=== PATIENT | female | born 1950 | race Caucasian/White ===

== ENCOUNTER → 2016-11-09 | Outpatient (CLI) | payer MEDICARE, BC ==
[2016-11-09 11:57] LABS: ALT 47 U/L (9-52); AST 35 U/L (14-36); Alkaline Phosphatase 76 U/L (38-126); Anion Gap 10 mmol/L; Blood Urea Nitrogen 17 mg/dL (7-17); Calcium 9.5 mg/dL (8.4-10.2); Carbon Dioxide 24 mmol/L (22-30); Chloride 108 mmol/L (98-107); Glucose 105 mg/dL (74-99); Non-African American GFR(MDRD) >60 (>60 ml/min/1.73 sqM); Potassium 4.1 mmol/L (3.5-5.1); Sodium 142 mmol/L (137-145); Total Bilirubin 0.7 mg/dL (0.2-1.3); Total Protein 6.3 g/dL (6.3-8.2)
== END | disposition home or self-care (01) ==
LOC: LABWHC1 07:31
PROVIDERS: ATTEND Internal Medicine Endocrinology, Diabetes & Metabolism
DX: E03.9 Hypothyroidism, unspecified (principal); M81.0 Age-related osteoporosis without current pathological fracture
CPT/HCPCS: 36415; 80053; 82306; 83970; 84443

== ENCOUNTER → 2017-11-08 | Outpatient (CLI) | payer MEDICARE, BC ==
[2017-11-08 09:43] LABS: Albumin 4.3 g/dL (3.5-5.0); Calcium 9.4 mg/dL (8.4-10.2); Potassium 4.8 mmol/L (3.5-5.1); Total Bilirubin 0.7 mg/dL (0.2-1.3); Total Protein 6.6 g/dL (6.3-8.2)
== END | disposition home or self-care (01) ==
LOC: LABWHC1 08:34
PROVIDERS: ATTEND Internal Medicine Endocrinology, Diabetes & Metabolism
DX: E55.9 Vitamin D deficiency, unspecified (principal); E21.3 Hyperparathyroidism, unspecified; E03.8 Other specified hypothyroidism
CPT/HCPCS: 36415; 80053; 82306; 84443

== ENCOUNTER → 2017-11-17 | Outpatient (CLI) | payer MEDICARE, BC ==
--- NOTE | 2017-11-17 16:16 | BD ---
EXAMINATION TYPE: Axial Bone Density DATE OF EXAM: 11/17/2017 COMPARISON: NONE CLINICAL HISTORY: Height: 62 Weight: 170.7 FRAX RISK QUESTIONS: Alcohol (3 or more units per day): no Family History (Parent hip fracture): yes Glucocorticoids (More than 3mos): no (Ex: prednisone, prednisolone, methylprednisolone, dexamethasone, and hydrocortisone). History of Fracture in Adulthood: no Secondary Osteoporosis: 1. Type 1 Diabetes: no 2. Hyperthyroidism: no 3. Menopause before 45: no 4. Malnutrition: no 5. Chronic liver disease: no Rheumatoid Arthritis: no Current Tobacco Use: no RISK FACTORS HISTORY OF: Family History of Osteoporosis: yes Active: yes Diet low in dairy products/other sources of calcium: no Postmenopausal woman: age 46 Lost more than 2 inches in height since high school: no MEDICATIONS: vit d, baby aspirin Thyroid Medications: synthroid How Lon years Additional History: EXAM MEASUREMENTS: Bone mineral densitometry was performed using the [employer] System. Bone mineral density as measured about the Lumbar spine is: ----- L1-L4(G/cm2): 1.108 T Score Values are as follows: ----- L2: -0.9 ----- L3: -0.1 ----- L4: -0.3 ----- L1-L4: -0.6 Bone mineral density has: increased 1.6 % since study of: 09.19.2015 Bone mineral density about the R hip (g/cm2): 0.843 Bone mineral density about the L hip (g/cm2): 0.845 T Score values are as follows: -----R Neck: -1.4 -----L Neck: -1.4 -----R Total: -0.8 -----L Total: -0.7 Bone mineral density has: decreased -1.8 % since study of: 09.19.2015 IMPRESSION: Osteopenia (T Score between -2.5 and -1). There is slightly increased risk of fracture and the patient may be considered for treatment. Re-Screen 2-5 years. NOTE: T-SCORE=SD OF THE YOUNG ADULT MEAN.
== END | disposition home or self-care (01) ==
LOC: RADBDWWP 10:44
PROVIDERS: ATTEND Internal Medicine Endocrinology, Diabetes & Metabolism
DX: M85.80 Other specified disorders of bone density and structure, unspecified site (principal)
CPT/HCPCS: 77080

== ENCOUNTER → 2017-12-10 | Outpatient (CLI) | payer MEDICARE, BC ==
--- NOTE | 2017-12-10 08:26 | CT ---
EXAMINATION TYPE: CT sinus wo con DATE OF EXAM: 12/10/2017 COMPARISON: NONE HISTORY: Chronic sinusitis per order. Recurrent sinus infection for years per patient CT DLP: 639 mGycm. Automated Exposure Control for Dose Reduction was Utilized. TECHNIQUE: CT scan of the sinuses is performed without contrast, axial images are obtained, coronal r eformatted images are also reviewed. FINDINGS: There is eccentric 10 mm mucus retention cyst or polyp in the inferior lateral left maxilla ry sinus with minimal adjacent mucosal thickening. Remainder of the paranasal sinuses are clear. No suspicious opacification or air-fluid levels are seen The ostiomeatal complex is patent bilaterally o n the coronal images seen best coronal image 26. Mild left-sided antral mucosal thickening is noted o n this image. Visualized portion of mastoid air cells show no abnormal opacification. The globes are intact bilate rally. Visualized portion of brain parenchyma shows mild age-related cerebral atrophy and chronic sm all vessel ischemic change IMPRESSION: Mild chronic left-sided paranasal sinus disease. No acute sinusitis.
== END | disposition home or self-care (01) ==
LOC: RADXRMAIN 07:34
PROVIDERS: ATTEND Otolaryngology
DX: J34.89 Other specified disorders of nose and nasal sinuses (principal); J32.9 Chronic sinusitis, unspecified
CPT/HCPCS: 70486

== ENCOUNTER → 2018-11-07 | Outpatient (CLI) | payer MEDICARE, BC ==
[2018-11-07 12:25] LABS: African American GFR (CKD) 75.1 (60.0-200.0); Albumin 4.4 g/dL (3.80-4.90); Albumin/Globulin Ratio 2.32 (1.60-3.17); BUN/Creat Ratio 26.67 Ratio (12.00-20.00); Calcium 9.5 mg/dL (8.7-10.3); Globulin 1.9 g/dL (1.6-3.3); Potassium 4.3 mmol/L (3.5-5.5); Total Bilirubin 0.7 mg/dL (0.2-1.2); Total Protein 6.3 g/dL (6.2-8.2)
[2018-11-07 12:33] LABS: Vitamin D 25 Hydroxy 32.8 ng/mL (30.0-100.0)
[2018-11-07 12:58] LABS: Parathyroid Hormone Intact 74.6 pg/mL (14.0-72.0)
== END | disposition home or self-care (01) ==
LOC: LABWHC1 06:40
PROVIDERS: ATTEND Internal Medicine Endocrinology, Diabetes & Metabolism
DX: E03.8 Other specified hypothyroidism (principal); E55.9 Vitamin D deficiency, unspecified; E21.3 Hyperparathyroidism, unspecified
CPT/HCPCS: 36415; 80053; 82306; 83970; 84443

== ENCOUNTER → 2020-01-24 | Outpatient (CLI) | payer MEDICARE, BC ==
--- NOTE | 2020-01-25 09:26 | CT ---
EXAMINATION TYPE: CT abdomen pelvis w con DATE OF EXAM: 01/24/2020 HISTORY: Abdomen pain, hx diverticulitis. CT DLP: 869.52mGycm Automated Exposure Control for Dose Reduction was Utilized. CONTRAST: CT scan of the abdomen and pelvis is performed with IV Contrast, patient injected with 100 mL of Isov ue 300. COMPARISON: CT abdomen and pelvis January 03, 2018 FINDINGS: LUNG BASES: No significant abnormality is appreciated. LIVER/GB: Liver remains diffusely low dense consistent with diffuse fatty infiltration. PANCREAS: No significant abnormality is seen. SPLEEN: No significant abnormality is seen. ADRENALS: No significant abnormality is seen. KIDNEYS: No significant abnormality is seen. BOWEL: Oral contrast reaches level of the mid transverse colon. There is no suspicious small or large bowel dilatation. Normal-appearing appendix is seen from base of cecum. Suboptimal evaluation of dis jessica bowel. Few scattered diverticula in the left colon. More prominent diverticulosis in the sigmoid colon of the pelvis where there is moderate to severe wall thickening and mild ill-defined fat strand ing on current study. UTERUS/ADNEXA: Anteverted uterus. Prominence of the central hypodense endometrium up to 11 mm in [facility] axial image 69. Nonemergent follow-up advised. Symmetric normal size ovaries noted near axial i mage 57. LYMPH NODES: No greater than 1cm abdominal or pelvic lymph nodes are appreciated. OSSEOUS STRUCTURES: Mild to moderate disc space narrowing left L4-L5 level. OTHER: No significant additional abnormality is seen. IMPRESSION: 1. Mild uncomplicated acute diverticulitis mid sigmoid colon level in the left mid pelvis. Follow-up colonoscopy after treatment is advised to underlying moderate to severe wall thickening if has not be en performed in last 3 years to rule out underlying mass. 2. Some prominence of the central hypodense endometrial stripe in postmenopausal female, advise pelvi c ultrasound follow-up to better evaluate and characterize.
== END | disposition home or self-care (01) ==
LOC: RADCTMAIN 14:36
PROVIDERS: ATTEND Surgery
DX: K57.92 Diverticulitis of intestine, part unspecified, without perforation or abscess without bleeding (principal); N95.9 Unspecified menopausal and perimenopausal disorder
CPT/HCPCS: 82565; 84520; 74177; 36415; Q9967

== ENCOUNTER → 2020-02-20 | Outpatient (CLI) | payer MEDICARE, BC ==
--- NOTE | 2020-02-21 09:03 | MM ---
Reason for exam: screening (asymptomatic). Last mammogram was performed 6 years and 2 months ago. History: Patient is postmenopausal. Family history of breast cancer in aunt. Core biopsy of the right breast. Physical Findings: A clinical breast exam by your physician is recommended on an annual basis and results should be correlated with mammographic findings. MG 3D Screening Mammo W/Cad Bilateral CC and MLO view(s) were taken. Prior study comparison: December 05, 2013, bilateral MG screening mammo w CAD. The breast tissue is heterogeneously dense. This may lower the sensitivity of mammography. Finding #1: There is a 9 mm obscured oval mass located 4-5 cm from the nipple in the anterior, middle, central position of the left breast CC 25/77 and MLO 36/79. Finding #2: There are typically benign vascular, round calcifications in both breasts. ASSESSMENT: Incomplete: need additional imaging evaluation, BI-RAD 0 RECOMMENDATION: Ultrasound of the left breast. [facility] will attempt to contact patient to return for ultrasound.
== END | disposition home or self-care (01) ==
LOC: RADMAMWWP 07:02
PROVIDERS: ATTEND Internal Medicine Geriatric Medicine
DX: Z12.31 Encounter for screening mammogram for malignant neoplasm of breast (principal)
CPT/HCPCS: 77063; 77067

== ENCOUNTER → 2020-02-28 | Outpatient (CLI) | payer MEDICARE, BC ==
--- NOTE | 2020-02-28 10:01 | USB ---
Reason for exam: additional evaluation requested from abnormal screening. History: Patient is postmenopausal. Family history of breast cancer in aunt. Core biopsy of the right breast. Physical Findings: Nurse did not find any significant physical abnormalities on exam. US Breast Workup LT Technologist: Nikole Dela Cruz Left complete breast ultrasound includes all four quadrants, the retroareolar region and axilla. Finding demonstrates a 0.7 x 0.6 x 0.5cm circular, cystic lesion at 6 o'clock, a 0.4 x 0.6 x 0.4cm lesion at the nipple and a 0.9 x 0.5 x 0.4cm oval, cystic lesion at 9 o'clock. These results were verbally communicated with the patient and result sheet given to the patient on 02/28/20. ASSESSMENT: Probably benign, BI-RAD 3 RECOMMENDATION: Follow-up diagnostic mammogram and ultrasound of the left breast in 6 months.
== END | disposition home or self-care (01) ==
LOC: RADUSWWP 08:37
PROVIDERS: ATTEND Internal Medicine Geriatric Medicine
DX: R92.8 Other abnormal and inconclusive findings on diagnostic imaging of breast (principal)

== ENCOUNTER → 2020-03-26 | Day surgery (SDC) | payer MEDICARE, BC ==
[2020-03-19 10:10] VITALS: BMI 32.1
[~2020-03-26] MED LIST: LACTATED RINGERS 1,000 ML IV ONE; LACTATED RINGERS 1,000 ML IV SCH; LIDOCAINE 1% (10MG/ML) FOR IV START INTRADERMA PRN; PROPOFOL 10 MG/ML 20 ML VIAL IV ONE
[2020-03-26 09:24] VITALS: TEMP 97.8
--- NOTE | 2020-03-26 10:13 | P.GSHP ---
History of Present Illness H&P Date: 03/26/20 Chief Complaint: Change in bowel habits 69-year-old female seen in the office in December. Patient has had complaints of change in bowel habits. Has had episodes of diverticulitis as well. Usually about 2 episodes a year. Last episode January 24. CAT scan showed mild di verticulitis. No rectal bleeding. Past Medical History Past Medical History: Thyroid Disorder Additional Past Medical History / Comment(s): OSTEOPOROSIS, diverticulitis. History of Any Multi-Drug Resistant Organisms: None Reported Past Surgical History: No Surgical Hx Reported, Orthopedic Surgery Additional Past Surgical History / Comment(s): YMUIKO FEET HEEL SPURS REMOVED, COLONOSCOPY, yumiko Cataracts Past Anesthesia/Blood Transfusion Reactions: No Reported Reaction Smoking Status: Former smoker Medications and Allergies Home Medications Medication Instructions Recorded Confirmed Type Levothyroxine Sodium [Synthroid] 88 mcg PO MOTUWETHFRSA 10/18/13 03/19/20 History Levothyroxine Sodium [Synthroid] 44 mcg PO HERMAN 01/03/18 03/19/20 History Ergocalciferol (Vitamin D2) 1,250 mcg PO Q14D 03/19/20 03/19/20 History [Vitamin D2] Fenofibrate [Lofibra] 54 mg PO DAILY 03/19/20 03/19/20 History Allergies Allergy/AdvReac Type Severity Reaction Status Date / Time ciprofloxacin [From Cipro] Allergy Unknown Verified 03/19/20 10:04 adhesive AdvReac Unknown Verified 03/19/20 10:04 Surgical - Exam Vital Signs Temp Pulse Resp BP Pulse Ox 97.8 F 68 18 168/84 98 03/26/20 09:23 03/26/20 09:23 03/26/20 09:23 03/26/20 09:23 03/26/20 09:23 Physical exam: General: Well-developed, well-nourished HEENT: Normocephalic, sclerae nonicteric Abdomen: Nontender, nondistended Extremities: No edema Neuro: Alert and oriented Assessment and Plan (1) Change in bowel habits Narrative/Plan: Will proceed with colonoscopy. Current Visit: Yes Status: Acute Code(s): R19.4 - CHANGE IN BOWEL HABIT SNOMED Code(s): 074587415
--- NOTE | 2020-03-26 10:23 | P.PCN ---
Date of Procedure: 03/26/20 Procedure(s) Performed: PREOPERATIVE DIAGNOSIS: Colon cancer screening POSTOPERATIVE DIAGNOSIS: Tortuous sigmoid colon unable to advance through that region PROCEDURE: Colonoscopy attempted ANESTHESIA: MAC SURGEON: Roberto Cary M.D. SPECIMENS: None ENDOSCOPIC PROCEDURE: The patient was placed on the endoscopy table in the left decubitus position. The Olympus colonoscope was inserted into the anus and passed under direct visualization to the mid sigmoid colon. The patient had significant tortuosity. I could not visualize any definite diverticulosis or stricture formation at the scope was unable to advance beyond the mid sigmoid despite multiple attempts. The scope was withdrawn. The visualized sigmoid and rectum appeared normal. Digital rectal examination was normal. The patient was taken to the recovery room in stable condition per anesthesia guidelines. RECOMMENDATIONS: Will discuss options barium enema with patient. Patient may benefit from elective sigmoid resection at some point given her recurrent episodes of diverticulitis and sigmoid tortuosity.
[2020-03-26 10:27] VITALS: RESP 16
[2020-03-26 12:54] VITALS: BP 132/75; PULSE 62
--- NOTE | 2020-03-26 14:29 | FL ---
EXAMINATION TYPE: FL barium enema DATE OF EXAM: 03/26/2020 COMPARISON: CT abdomen and pelvis January 24, 2020 HISTORY: History of diverticulosis and diverticulitis and incomplete colonoscopy earlier today TECHNIQUE: A double contrast barium enema study is performed. Total 2 minutes 5 seconds fluoroscopic time. 24 images saved to PACS. FINDINGS: [employer] view of the abdomen shows overall non-obstructive bowel gas pattern. Enema study is performed. There is successful filling to the cecum. There are scattered diverticula t hroughout the transverse and left colon with more prominent diverticulosis in the sigmoid colon. Ther e is mild wall irregularities and underdistention presumed stricturing of the sigmoid colon present p roduct of prior chronic diverticulitis. No concentric narrowing mass or neoplasm identified. No large polyp. Appendix was filled and appeared normal. The terminal ileum was refluxed and appears within normal limits on overhead images obtained. IMPRESSION: Scattered colonic diverticula with more prominent diverticulosis and findings from chron ic inflammation or diverticulitis in the sigmoid colon. No obstructing mass or neoplasm identified. S uccessful filling to the cecum noted.
== END ==
LOC: ORWHC2ENDO 09:07
PROVIDERS: ATTEND Surgery
DX: K57.31 Diverticulosis of large intestine without perforation or abscess with bleeding (principal); R93.3 Abnormal findings on diagnostic imaging of other parts of digestive tract; Q43.8 Other specified congenital malformations of intestine; E07.9 Disorder of thyroid, unspecified; M81.0 Age-related osteoporosis without current pathological fracture; Z98.890 Other specified postprocedural states; Z87.39 Personal history of other diseases of the musculoskeletal system and connective tissue; Z98.41 Cataract extraction status, right eye; Z98.42 Cataract extraction status, left eye; Z87.891 Personal history of nicotine dependence; Z79.890 Hormone replacement therapy; Z79.899 Other long term (current) drug therapy; Z88.1 Allergy status to other antibiotic agents; Z91.09 Other allergy status, other than to drugs and biological substances; Z97.2 Presence of dental prosthetic device (complete) (partial)
CPT/HCPCS: 74270; 45330; J2704

== ENCOUNTER → 2020-09-10 | Outpatient (CLI) | payer MEDICARE, BC ==
--- NOTE | 2020-09-10 11:42 | MM ---
Reason for exam: follow-up at short interval from prior study. Last mammogram was performed 7 months ago. History: Patient is postmenopausal. Family history of breast cancer in maternal aunt at age 80. Core biopsy of the right breast. Physical Findings: Nurse did not find any significant physical abnormalities on exam. MG 3D Diag Mammo W/Cad LT CC and MLO view(s) were taken of the left breast. Prior study comparison: February 20, 2020, bilateral MG 3d screening mammo w/cad. December 05, 2013, bilateral MG screening mammo w CAD. The breast tissue is heterogeneously dense. This may lower the sensitivity of mammography. Stable nodules left breast. Ultrasound recommended. These results were verbally communicated with the patient and result sheet given to the patient on 09/10/20. ASSESSMENT: Incomplete: need additional imaging evaluation, BI-RAD 0 RECOMMENDATION: Ultrasound of the left breast.
--- NOTE | 2020-09-10 11:44 | USB ---
Reason for exam: additional evaluation requested from abnormal screening. History: Patient is postmenopausal. Family history of breast cancer in maternal aunt at age 80. Core biopsy of the right breast. US Breast Limited LT Left limited breast ultrasound including focal area of concern, retroareolar and axilla demonstrates a 8 x 4 x 7mm oval, cystic lesion with debris at 6 o'clock, a 11 x 3 x 5mm oval, cystic lesion at 9 o'clock and a 6 x 3 x 6mm oval, cystic lesion at the posterior nipple. Similar in appearance to previous. Minimally complex cysts. Probably benign. These results were verbally communicated with the patient and result sheet given to the patient on 09/10/20. ASSESSMENT: Probably benign, BI-RAD 3 RECOMMENDATION: Follow-up diagnostic mammogram of both breasts in 6 months. Ultrasound of the left breast in 6 months.
== END | disposition home or self-care (01) ==
LOC: RADMAMWWP 07:33
PROVIDERS: ATTEND Internal Medicine Geriatric Medicine
DX: R92.2 Inconclusive mammogram (principal); N60.12 Diffuse cystic mastopathy of left breast; Z78.0 Asymptomatic menopausal state; Z80.3 Family history of malignant neoplasm of breast
CPT/HCPCS: 77065; 76642; G0279; 77061

== ENCOUNTER → 2021-11-12 | Outpatient (CLI) | payer MEDICARE, BC ==
--- NOTE | 2021-11-12 08:44 | USB ---
Reason for Exam: Additional evaluation requested from prior study. Follow-up at short interval from prior study. Last mammogram was performed 1 year(s) and 9 month(s) ago. Patient History: Menarche at age 11. First Full-Term at age 24. Postmenopausal. Core Biopsy on the Right side. Maternal aunt had breast cancer, age 80. Risk Values: Uzma 5 year model risk: 2.3%. NCI Lifetime model risk: 5.7%. Prior Study Comparison: 07/29/2005 Bilateral Screening Mammogram, [facility]. 08/12/2006 Bilateral Screening Mammogram, [facility]. 12/05/2013 Bilateral Screening Mammogram, [facility]. 02/20/2020 Bilateral Screening Mammogram, [facility]. 09/10/2020 Left Diagnostic Mammogram, [facility]. Tissue Density: The breast tissue is heterogeneously dense. This may lower the sensitivity of mammography. Findings: Analyzed By CAD. Mammogram Punctate calcifications are seen bilaterally. No evidence for mass or distortion.. Technique: Method: Targeted. Findings: The lower inner quadrant of the left breast and the retroareolar of the left breast were scanned. Finding 1: Simple cyst. Laterality: Left. Size 5 x 5 x 5 mm. 9 O'clock Quadrant: Lower inner. 2 cm cm from nipple. Shape: Round or Oval. Previously noted cystic lesion at the left 6:00 location has resolved. There is a stable retroareolar cysts smooth margins and through transmission measuring 5 x 4 mm. No solid masses are detected. Overall Assessment: Benign, BI-RAD 2 Assessment: MG 3D diag mammo w/cad YUMIKO - Bilateral: Incomplete: need additional imaging evaluation, BI-RAD 0 - Left. US breast limited LT - Left: Benign, BI-RAD 2. Management: Screening Mammogram of both breasts in 1 year. A clinical breast exam by your physician is recommended on an annual basis and results should be correlated with mammographic findings. Results were given to the patient verbally at the time of exam. Electronically signed and approved by: Levar Sunshine M.D. Radiologis
== END | disposition home or self-care (01) ==
LOC: RADMAMWWP 06:39
PROVIDERS: ATTEND Internal Medicine Geriatric Medicine
DX: N60.01 Solitary cyst of right breast (principal); R92.8 Other abnormal and inconclusive findings on diagnostic imaging of breast; Z78.0 Asymptomatic menopausal state; Z80.3 Family history of malignant neoplasm of breast
CPT/HCPCS: 77066; 76642; G0279; 77062

== ENCOUNTER → 2023-11-15 | Outpatient (CLI) | payer MEDICARE ==
--- NOTE | 2023-11-16 08:45 | MM ---
Reason for Exam: Screening (asymptomatic). Last screening mammogram was performed 12 month(s) ago. Patient History: Menarche at age 11. First Full-Term at age 24. Postmenopausal. Core Biopsy on the Right side. Maternal aunt had breast cancer, age 80. Risk Values: Uzma 5 year model risk: 2.3%. NCI Lifetime model risk: 5.0%. Prior Study Comparison: 09/10/2020 Left Diagnostic Mammogram, [facility]. 11/12/2021 Bilateral MG 3D diag mammo w/cad YUMIKO, [facility]. 11/13/2022 Bilateral MG 3D screening mammo w/cad, [facility]. Tissue Density: The breasts are heterogeneously dense, which may obscure small masses. Findings: Analyzed By CAD. There is no suspicious group of microcalcifications or new suspicious mass in either breast. Benign-appearing calcified. Overall Assessment: Benign, BI-RAD 2 Management: Screening Mammogram of both breasts in 1 year. . Patient should continue monthly self-breast exams. A clinical breast exam by your physician is recommended on an annual basis. This exam should not preclude additional follow-up of suspicious palpable abnormalities. Note on Uzma scores and lifetime risk: 1. A Uzma score greater than 3% is considered moderate risk. If this is the case, consider specialist referral to assess eligibility for a risk reducing agent. 2. If overall lifetime risk for the development of breast cancer is 20% or higher, the patient may qualify for future screening with alternating mammogram and breast MRI. Electronically signed and approved by: Ramiro Montoya M.D. Radiologis
== END | disposition home or self-care (01) ==
LOC: RADMAMWWP 07:51
PROVIDERS: ATTEND Internal Medicine Geriatric Medicine
DX: Z12.31 Encounter for screening mammogram for malignant neoplasm of breast (principal); R92.333 Mammographic heterogeneous density, bilateral breasts; Z78.0 Asymptomatic menopausal state; Z80.3 Family history of malignant neoplasm of breast
CPT/HCPCS: 77063; 77067